=== PATIENT | female | born 1945 | race African-American/Black ===

== ENCOUNTER 2016-08-02 22:58 | Observation (INO) | payer OTHER ==
--- NOTE | ~2016-08-02 | HP ---
History And Physical [address] [place] [address] NAME: ISSA AWAN : 47 STATUS : ADM Sulaiman PAT#: [id number] AGE: 71 ADM/REG DATE : 08/02/16 MR#: [id number] REPORT SERV DATE: 08/03/16 DICTATED BY: KELLIE PATEL DATE: 08/03/16 REPORT STATUS : Draft TRANSCRIBED BY: MODL DATE: 08/03/16 DATE OF ADMISSION: 08/02/2016 TRANSPORTER RADIOLOGY: Demetris Beasley M.D. CHIEF COMPLAINT: Atypical chest pain. HISTORY OF PRESENT ILLNESS: This is a pleasant 71-year-old black female with a known history of CAD, status post reportedly heart attacks x3, two stents to unknown vessels, and bypass at x3 approximately 2001, possibly at [facility]. The patient is a poor historian for her medical health care. She states that she was coughing all day yesterday and her chest began to hurt. She thought she might be having a heart attack. She describes substernal chest pain that seemingly does not radiate elsewhere. She rated her chest pain an 8/10 at its most intense at the time of interview in the [facility]. She is pain free. The episode lasted approximately 15 minutes per report. She reports associated shortness of breath, diaphoresis, and belching. Denies nausea or dizziness. There is no exertional component described. She leads a rather sedentary lifestyle. She does take care of her own ADLs and uses a walker to ambulate about her residence, but states she is "lazy." The patient self reports heart attack x3 and stroke x3. Denies history of DVT or pulmonary embolus. The patient denies any recent fever or chills. No palpitations. No syncopal episodes. Denies PND or orthopnea. PAST MEDICAL HISTORY: 1. CAD. a. self reports NM x3. b. Self reports two stents to unknown vessels. c. CABG x3, approximately 2001. d. History of strokes x3 with subsequent seizures and uses walker for ambulation. 2. Hypertension. 3. Dyslipidemia. 4. AODM. No medications reported. 5. Gout. 6. Sleep apnea. Does not have CPAP. 7. Remote tobacco abuse. 8. PAF, on Xarelto. PAST SURGICAL HISTORY: 1. CABG x3. 2. . 3. Cholecystectomy. 4. Hemorrhoidectomy. SOCIAL HISTORY: She is with four children. One son from a shooting. She is retired from the [employer] house, resides with her granddaughter, who also has some six History And Physical [address] [address] [place]. [address] NAME: ISSA AWAN : 47 STATUS : ADM Sulaiman PAT#: [id number] AGE: 71 ADM/REG DATE : 08/02/16 MR#: [id number] REPORT SERV DATE: 08/03/16 DICTATED BY: KELLIE PATEL DATE: 08/03/16 REPORT STATUS : Draft TRANSCRIBED BY: LILLIANA DATE: 08/03/16 children. Does not have an exercise routine. Quit smoking 20 years ago. Denies alcohol or illicits. FAMILY HISTORY: Mother of a heart attack at 78. Father of a heart attack in his 80s. REVIEW OF SYSTEMS: A 14-point review of systems was performed, significant for HPI including home blood sugars of 110. The patient states that she does not have nitroglycerin available to her. ALLERGIES: PENICILLIN, BLISTERS; SULFA, BLISTERS; RANITIDINE AND ALPRAZOLAM, SUICIDAL THOUGHTS. HOME MEDICINES: Incomplete but includes Zyloprim 100 mg daily; aspirin 81 mg daily; Lipitor 40 mg daily; baclofen 10 mg twice daily p.r.n.; Plavix 75 mg daily; Lasix 40 mg daily; gabapentin 300 mg in the morning, 900 at bedtime, 600 with supper; hydrocodone 7.5/325 four times daily p.r.n.; Keppra 500 mg twice daily; metoprolol succinate 50 mg daily; K-Dur 20 mg daily; Xarelto 20 mg at bedtime; unknown diabetes medication. PHYSICAL EXAMINATION: VITAL SIGNS: Blood pressure 148/67, pulse 54, respirations 20, temperature 98.0, O2 saturation 98% on room air. Height 5 feet 8 inches, weight 230 pounds, BMI 35. GENERAL: Cooperative, in no apparent distress. Poor historian for health care. HEENT: Pupils 2 mm, sclera nonicteric. Nares patent. Moist mucous membranes. No xanthelasma. NECK: Trachea midline, no thyromegaly. No JVD. No bruits. LYMPH: No cervical lymphadenopathy. No supraclavicular lymphadenopathy. RESPIRATORY: Unlabored respirations. Breath sounds clear bilaterally to posterior auscultation. No wheezes or rhonchi. CARDIOVASCULAR: Regular rate. No murmur, rub or gallop appreciated. Extremities without edema. Pulses 2+ bilaterally. ABDOMEN: Obese, soft, nontender, nondistended, normal bowel sounds auscultated throughout. No organomegaly appreciated. SKIN: Warm, dry extremities. No pallor, or cyanosis. PSYCHIATRIC: Appropriate affect. Alert, oriented x3. LABORATORY DATA: Troponin less than 0.02 twice. Potassium 3.8, BUN 13, creatinine 0.93, glucose 142, and magnesium 2.1. WBC 6.8, hemoglobin 11.9, hematocrit 36.7, platelet count 181,000. EKG: Sinus rhythm, first-degree AV block, RBBB, LAD, lateral T-waves, rare PVC. Echo, 2011: EF 55% to 60%. Diastolic dysfunction. Mild mitral and pulmonary regurgitation. MPI 04/2013: Large anterior septal infarct without ischemia. EF 32%. ASSESSMENT AND PLAN: History And Physical [address] [address] NAME: ISSA AWAN : 47 STATUS : ADM Sulaiman PAT#: [id number] AGE: 71 ADM/REG DATE : 08/02/16 MR#: [id number] REPORT SERV DATE: 08/03/16 DICTATED BY: KELLIE PATEL DATE: 08/03/16 REPORT STATUS : Draft TRANSCRIBED BY: LILLIANA DATE: 08/03/16 1. Atypical chest pain in a patient with multiple risk factors who is also a poor historian for her medical health care. The patient has been observed in the CPOU overnight to rule out myocardial infarction. Two sets of cardiac markers negative. EKG appears stable with no ST elevation. The patient has been held n.p.o. We will proceed with vasodilator stress test today. The patient most likely would better benefit from a cardiac PET scan but no slots available today. The patient will be discharged home if low risk, no ischemia, or unchanged study from previous. The patient will be asked to follow up at [facility] and with Dr. Beasley as appropriate. 2. Coronary artery disease. Clarify home medications with PCP and/or Pharmacy. Continue as appropriate. Request records from Dr. Beasley's office. 3. Hypertension. Monitor blood pressure. Continue home medications. 4. Dyslipidemia. Continue statin. 5. Adult-onset diabetes mellitus. Does not recall diabetes medications but reports home blood sugars of 110. I will ask Pharmacy to clarify. 6. Obesity. Diet and exercise discussed. 7. Does not have nitroglycerin available. Reportedly ran out. A script will be provided at discharge with instruction. JORGE ALBERTO/LILLIANA Kellie Patel MSN, DYE BOX OPERATOR-BC / [id number] CC: VALERIE Carbone, DYE BOX OPERATOR-BC Jazmine Bryson M.D. Demetris Beasley M.D.
[2016-08-02 22:24] LABS: BASOPHILS 0.1 %; BASOPHILS ABSOLUTE 0.01 10/3/uL (0.0-0.16); EOSINOPHILS 0.4 %; EOSINOPHILS ABSOLUTE 0.03 10/3/uL (0.0-0.53); ER CBC TAT 0 Hrs 09 Mins; HEMATOCRIT 36.7 % (36.0-48.0); HEMOGLOBIN 11.9 g/dL (12.0-16.0); IMMATURE GRANULOCYTES 0.1 %; IMMATURE GRANULOCYTES ABSOLUTE 0.01 10/3/uL (0.0-0.11); LYMPHOCYTES ABSOLUTE 1.91 10/3/uL (0.67-4.30); MEAN CORPUS HGB CONC 32.4 g/dL (32.0-36.0); MEAN CORPUSCULAR HEMOGLOB 31.3 pg (26.0-34.0); MEAN CORPUSCULAR VOLUME 96.6 fL (80-100); MEAN PLATELET VOLUME 9.4 fL (9.2-13.0); MONOCYTES 6.3 %; MONOCYTES ABSOLUTE 0.43 10/3/uL (0.21-1.20); NEUTROPHILS 65.1 %; NEUTROPHILS ABSOLUTE 4.43 10/3/uL (2.02-8.40); PLATELET COUNT 181 10/3/uL (150-400); RBC DISTRIBUTION WIDTH 13.5 % (12.0-16.0); WHITE BLOOD CELLS 6.8 10/3/uL (4.5-10.5)
[2016-08-02 22:25] LABS: MANUAL DIFF NO %
[2016-08-02 22:34] LABS: PARTIAL THROMBO TIME 31.7 SEC (22.5-37.2)
[2016-08-02 22:35] LABS: INTERNATIONAL NORMAL RATI 1.7 UNITS (-)
[2016-08-02 22:36] LABS: PROTIME (NOT ORD) 19.8 SEC (12.0-14.5)
[2016-08-02 22:42] LABS: BUN (BLOOD UREA NITROGEN) 13 MG/DL (6-23); CALCIUM, SERUM 8.8 MG/DL (8.5-10.4); CHEST PAIN PROFILE TAT 0 Hrs 27 Mins; CHLORIDE, SERUM 110 MMOL/L (96-112); CO2 (CARBON DIOXIDE) 34 MMOL/L (24-34); CREATININE 0.93 MG/DL (0.55-1.02); GFR AFRICAN AMERICAN 72 ML/MIN (>=60); GFR NON AFRICAN AMERICAN 62 ML/MIN (>=60); GLUCOSE, SERUM 142 MG/DL (60-99); POTASSIUM, SERUM 3.8 MMOL/L (3.5-5.3); SODIUM, SERUM 146 MMOL/L (135-148); TROPONIN I <0.02 NG/ML (<0.05)
[~2016-08-02 22:58] MED LIST: ALAVERT10 MG PO; COUMADIN4 MG PO; DILT-XR120 MG PO; KAON-CL-1010 MEQ PO; KLONO5 PO; KLOR-CON 1010 MEQ PO; L20 PO; L80 PO; LOP25 PO; LOP50 PO; LORTAB10 PO; PERCOCET1 TA4 PO; PLAVIX PO; PRILO PO; VICODINTAB PO; ZETIA PO; ZOCOR40 PO; ZOL100 PO
[2016-08-03] MEDS ORDERED: NEUR300 PO ×2 (01:00→01:01)
[2016-08-03] MEDS ORDERED: NEUR600 PO (01:01)
[2016-08-03] MEDS ORDERED: KDUR20 PO (01:01)
[2016-08-03] MEDS ORDERED: TOPXL25 PO (01:01)
[2016-08-03] MEDS ORDERED: ASAB PO (01:02)
[2016-08-03] MEDS ORDERED: KEPPRA500 PO (01:05)
[2016-08-03] MEDS ORDERED: L40 PO (01:05)
[2016-08-03] MEDS ORDERED: XARELTO20 MG PO (01:06)
[2016-08-03] MEDS ORDERED: LIOR10 PO (01:07)
[2016-08-03] MEDS ORDERED: Z100 PO (01:08)
[2016-08-03] MEDS ORDERED: NORCO1 TA2 PO (01:09)
[2016-08-03] MEDS ORDERED: PLAVIX PO (01:09)
[2016-08-03] MEDS ORDERED: LIPITOR40 PO (01:09)
[2016-08-03] MEDS ORDERED: *UNABLE1 (01:13)
[2016-08-03] MEDS ORDERED: JANUVIA25 MG PO ×2 (12:12→15:36)
[2016-08-04] MEDS ORDERED: COZ25 PO (13:17)
[2016-08-04] MEDS ORDERED: NITROSTAT0.4 MG SL (13:18)
== END 2016-08-04 13:28 | disposition home or self-care (01) ==
LOC: ER 22:58 → CDU1 23:00 → CDU2 08-03 00:37
PROVIDERS: Emergency Medicine
DX: R07.89 Other chest pain (principal); I25.10 Atherosclerotic heart disease of native coronary artery without angina pectoris; I10 Essential (primary) hypertension; E78.5 Hyperlipidemia, unspecified; E11.9 Type 2 diabetes mellitus without complications; E66.9 Obesity, unspecified; M10.9 Gout, unspecified; G47.30 Sleep apnea, unspecified; Z87.891 Personal history of nicotine dependence; Z95.1 Presence of aortocoronary bypass graft; Z98.891 History of uterine scar from previous surgery; Z90.49 Acquired absence of other specified parts of digestive tract; Z98.890 Other specified postprocedural states; Z82.49 Family history of ischemic heart disease and other diseases of the circulatory system; Z88.0 Allergy status to penicillin; Z88.2 Allergy status to sulfonamides; Z88.8 Allergy status to other drugs, medicaments and biological substances; Z79.82 Long term (current) use of aspirin; Z79.899 Other long term (current) drug therapy; Z79.891 Long term (current) use of opiate analgesic
CPT/HCPCS: 70450; 71010; 78492; 80048; 82962; 83735; 84484; 85025; 85610; 85730; 93005; 93017; 99285; A9270-GY; A9555; G0378; J2785